=== PATIENT | male | born 1935 | race Hispanic/Latino ===

== ENCOUNTER 2017-03-10 13:46 | Inpatient (IN) | payer MEDICARE ==
[2017-03-10] MEDS ORDERED: Sodium Chloride 0.9% 1,000 ML IV ONE ×2 (14:23→17:30)
--- NOTE | 2017-03-10 14:24 | C.PDOC ---
History Of Present Illness 82 year old male is brought to the ED by ambulance for evaluation of left hip pain and deformity that developed MANAGER BEAUTY. Patient reports he slipped at home, landed on his left hip. Otherwise, Patient denies LOC, head injury, headache, dizziness, visual changes, focal deficits, neck pain, CP, SOB, palpitation, abdominal pain, vomiting, incontinence, denies sensory or vascular deficits to Left leg. At the time of evaluation, pt is AAO#3, comfortably. Time Seen by Provider: 03/10/17 13:59 Chief Complaint (Nursing): Lower Extremity Problem/Injury History Per: Patient, EMS History/Exam Limitations: no limitations Onset/Duration Of Symptoms: Hrs Current Symptoms Are (Timing): Still Present Recent travel outside of the [place]: No Additional History Per: Patient, EMS - Hip Description Of Injury: Tripped Currently Unable To: Bend Or Move Past Medical History Reviewed: Historical Data, Nursing Documentation, Vital Signs Vital Signs: Last Vital Signs Temp 98.0 F 03/12/17 16:57 Pulse 80 03/12/17 16:57 Resp 18 03/12/17 16:57 BP 106/69 03/12/17 16:57 Pulse Ox 100 03/12/17 16:57 - Medical History PMH: Hypercholesterolemia Surgical History: Cholecystectomy Family History: States: Unknown Family Hx - Social History Hx Alcohol Use: No Hx Substance Use: No - Immunization History Hx Tetanus Toxoid Vaccination: No Hx Influenza Vaccination: Yes Hx Pneumococcal Vaccination: No Review Of Systems Constitutional: Negative for: Fever Eyes: Negative for: Vision Change Cardiovascular: Negative for: Chest Pain, Palpitations Respiratory: Negative for: Cough, Shortness of Breath Gastrointestinal: Negative for: Nausea, Vomiting, Abdominal Pain Genitourinary: Negative for: Incontinence Musculoskeletal: Positive for: Leg Pain (Left hip) Skin: Negative for: Rash Neurological: Negative for: Weakness, Numbness, Headache, Dizziness Physical Exam - Physical Exam Appears: Non-toxic, No Acute Distress Skin: Normal Color, Warm, Dry, No Rash, No Ecchymosis Head: Atraumatic, Normacephalic Eye(s): bilateral: PERRL Nose: No Discharge, No Deformity Oral Mucosa: Moist, No Drooling Throat: No Drooling Neck: Normal ROM, Trachea Midline, No Midline Cervical Tenderness, No Paracervical Tenderness, No Step Off Deformity, Supple Cardiovascular: Rhythm Regular, No Murmur Respiratory: No Decreased Breath Sounds, No Accessory Muscle Use, No Stridor, No Wheezing Gastrointestinal/Abdominal: Soft, No Tenderness, No Organomegaly, No Guarding, No Rebound Extremity: Tenderness (Left hip area), Capillary Refill (less than 2sec to left leg), Deformity (left hip ), Other (shortened left leg) Neurological/Psych: Oriented x3, Normal Speech, Normal Cognition, Normal Motor, Normal Sensation, Normal Reflexes ED Course And Treatment - Laboratory Results Result Diagrams: 03/12/17 10:26 03/10/17 21:01 ECG: Interpreted By Me, Viewed By Me (and ED attending) ECG Interpretation: Abnormal Interpretation Of ECG: SR@69/min, LAD, LBBBB. no old EKG available to compare. O2 Sat by Pulse Oximetry: 95 (On RA) Pulse Ox Interpretation: Normal - Radiology CXR Interpretation: Yes: Cardiomegaly, Other (s/p CABG) - Other Rad Left hip X-Ray: Interpreted by Me, Viewed By Me Interpretation: (+) comminuted left interthrochanteric fx, angulated Progress Note: Plan: -EKG, CXR ordered. -Blood work, UA ordered. -IV fluids given. -Left Hip X-Ray ordered. Spoke with Dr. Villar, admission arranged with ortho consult Dr. Nesbitt . 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 - Scribe Statement The provider has reviewed the documentation as recorded by the Scribjared Stone All medical record entries made by the José Miguelibjared were at my direction and personally dictated by me. I have reviewed the chart and agree that the record accurately reflects my personal performance of the history, physical exam, medical decision making, and the department course for this patient. I have also personally directed, reviewed, and agree with the discharge instructions and disposition.
[2017-03-10 14:58] LABS: BASO # 0.1 K/uL (0.0-0.2); BASO % 0.5 % (0.0-2.0); EOS # 0.1 K/uL (0.0-0.7); EOS % 0.7 % (0.0-4.0); HEMATOCRIT 35.5 % (35.0-51.0); LYMPH # 1.1 K/uL (1.0-4.3); LYMPH % 10.2 % (20.0-40.0); MEAN CELL VOLUME 96.2 fL (80.0-94.0); MEAN CORPUSCULAR HEMOGLOBIN 32.3 pg (27.0-31.0); MEAN CORPUSCULAR HGB CONC 33.6 g/dL (33.0-37.0); MEAN PLATELET VOLUME 7.9 fL (7.2-11.7); MONO # 0.5 K/uL (0.0-0.8); MONO % 4.7 % (0.0-10.0); NRBC % 0.1 % (0.0-2.0); RED CELL DISTRIBUTION WIDTH 12.6 % (11.5-14.5); WHITE BLOOD COUNT 11.2 K/uL (4.8-10.8)
[2017-03-10 15:26] LABS: ALKALINE PHOSPHATASE 96 U/L (38-126); ALT/SGPT 26 U/L (21-72); AST/SGOT 24 U/L (17-59); BILIRUBIN,TOTAL 0.8 mg/dL (0.2-1.3); BLOOD UREA NITROGEN 22 mg/dL (9-20); CALCIUM 8.3 mg/dl (8.6-10.4); CARBON DIOXIDE 24 mmol/L (22-30); CHLORIDE 105 mmol/L (98-107); GFR AFRICAN-AMERICAN > 60; GLUCOSE,RANDOM 120 mg/dL (75-110); POTASSIUM 4.6 mmol/L (3.6-5.2); SODIUM 138 mmol/L (132-148); TOTAL PROTEIN 6.2 g/dL (6.3-8.3)
[2017-03-10 15:32] LABS: ALB/GLOB RATIO 1.6 (1.0-2.1)
[2017-03-10] MEDS ORDERED: Sodium Chloride 0.9% 1,000 ML ONE ×3 (16:29→18:36)
--- NOTE | 2017-03-10 16:34 | RAD ---
PROCEDURE: CHEST RADIOGRAPH, 1 VIEW HISTORY: PRE-OP COMPARISON: None available. FINDINGS: LUNGS: Linear opacities at the lung bases may represent atelectasis. The left retrocardiac portion of the lower lobe is not well visualized. The possibility of left lung base opacity or infiltrate is not totally excluded. PLEURA: There is a blunting of the left costophrenic angle. CARDIOVASCULAR: Normal. OSSEOUS STRUCTURES: No significant abnormalities. VISUALIZED UPPER ABDOMEN: Normal. OTHER FINDINGS: None. IMPRESSION: Suboptimal portable study. The left lower lobe is not well visualized. There is blunting of the left costophrenic angle.
[2017-03-10] MEDS ORDERED: Morphine 4 MG/ML VIAL ONE (17:09)
--- NOTE | 2017-03-10 17:28 | CP.PCM.HP ---
History of Present Illness - History of Present Illness History of Present Illness: Chief complaint: Patient had a trip and fall, injury to the left hip History of present illness: 82-year-old male with history of hypertension, high cholesterol, CAD, status post coronary artery bypass grafting came to the emergency room, via ambulance with left hip pain. Patient was in his usual state of health, a rounded 12:00 he started walking in the house and he tripped and fell on the floor, and he injured his left hip. Patient was not able to get up, he had a severe pain, and he called the ambulance with extreme difficulty. Patient was having increasingly pain with moving the left hip. He does not have any other major systemic symptoms, no chest pain, no shortness of breath. He denies any nausea or vomiting. No external injuries noted. Past medical history: Hypertension, high cholesterol, CAD, diverticulosis Surgical history: CABG in 1993 cholecystectomy, cataract bilateral, colonoscopy Allergies no known drug allergies Family history: Father with asthma, alcohol or pneumonia in the age of 74, mother at age of 94. Brother of heart disease at the age of 63. Patient is a nonsmoker, nonalcoholic. Medications: ramipril 2.5 mg daily, Coreg 12.5 mg daily, Lipitor 20 mg, aspirin 81 mg daily. Review of systems: Patient has no headache. Had cataract surgery, no abdominal pain, no chest pain, no shortness of breath. Eating well. Patient has a good function capacity. Patient had a fall and a left hip injury Vital signs reviewed No neck vein distention noted Chest good air entry bilaterally, no wheezing or rales noted CVS regular heart sound, no murmur noted Abdomen soft, nontender. Extremities no pedal edema DOCTOR OF NURSING PRACTICE alert awake oriented -3, no functional neurological deficit Tenderness in the left hip. Externally rotated left hip painful X-ray of bilateral hips are showing evidence of left hip intertrochanteric fracture. Chest x-ray left lower lung atelectasis, pleural opacity cannot be ruled out EKG pending Labs noted. Nonspecific. Assessment and recommended impression: 81-year-old male with history of hypertension, hypercholesteremia, CAD, status post CABG now admitted with the acute left hip fracture. Intertrochanteric fracture. Patient will need a surgical intervention. I spoke to orthopedic surgery , possible surgical intervention in the morning. I also spoke to the cage loader to Dr. Gage, patient will be cleared by him for cardiology point of view. Patient is medically stable otherwise. Medical point of view patient is cleared up. DVT, GI prophylaxis Present on Admission - Present on Admission Any Indicators Present on Admission: No History of DVT/PE: No History of Uncontrolled Diabetes: No Urinary Catheter: No Decubitus Ulcer Present: No Review of Systems - Review of Systems All systems: reviewed and no additional remarkable complaints except Past Patient History - Past Social History Smoking Status: Smoker Currrent Status Unknown - CARDIAC Hx Hypercholesterolemia: Yes - PSYCHIATRIC Hx Substance Use: No - SURGICAL HISTORY Hx Cholecystectomy: Yes Meds Allergies/Adverse Reactions: Allergies Allergy/AdvReac Type Severity Reaction Status Date / Time No Known Allergies Allergy Verified 03/10/17 14:20 Results - Vital Signs Recent Vital Signs: Last Vital Signs Temp 97.6 F 03/10/17 14:16 Pulse 73 03/10/17 16:48 Resp 20 03/10/17 16:48 BP 115/58 L 03/10/17 16:48 Pulse Ox 95 03/10/17 16:55 - Labs Result Diagrams: 03/10/17 14:53 03/10/17 14:53 Labs: Laboratory Results - last 24 hr 03/10/17 03/10/17 03/10/17 14:53 14:53 14:53 WBC 11.2 H RBC 3.69 L Hgb 11.9 L Hct 35.5 MCV 96.2 H MCH 32.3 H MCHC 33.6 RDW 12.6 Plt Count 238 MPV 7.9 Neut % (Auto) 83.9 H Lymph % (Auto) 10.2 L [place] % (Auto) 4.7 Eos % (Auto) 0.7 Baso % (Auto) 0.5 Neut # 9.4 H Lymph # 1.1 [place] # 0.5 Eos # 0.1 Baso # 0.1 PT 11.1 INR 1.0 APTT 25 Sodium 138 Potassium 4.6 Chloride 105 Carbon Dioxide 24 Anion Gap 14 BUN 22 H Creatinine 0.8 Est GFR ( Amer) > 60 Est GFR (Non-Af Amer) > 60 Random Glucose 120 H Calcium 8.3 L Total Bilirubin 0.8 AST 24 ALT 26 Alkaline Phosphatase 96 Total Creatine Kinase 62 Troponin I < 0.0120 NT-Pro-B Natriuret Pep 812 Total Protein 6.2 L Albumin 3.8 Globulin 2.4 Albumin/Globulin Ratio 1.6 Assessment & Plan (1) Hx of CABG Status: Acute (2) HTN (hypertension) Status: Acute (3) Hypercholesteremia Status: Acute (4) Hip fracture Assessment and Plan: comparison the chart. Surgical intervention. DVT and GI prophylaxis Status: Acute
[2017-03-10] MEDS ORDERED: Sodium Chloride 0.9% 1,000 ML IV SCH ×3 (17:30→23:31)
--- NOTE | 2017-03-10 19:05 | CP.PCM.CON ---
History of Present Illness - History of Present Illness History of Present Illness: the pt is an 82 year old man with CAD, not seen in my office since 2013, who got up from a chair and fell, his left hip is broken. No recent chest pressure or dyspnea. pt has not had any non invasive CV tests for many years. ECG shows. nsr, mild first degree av block, poor R wave progression, LAD, cannot exdlude old AMI, and v bigeminy. Review of Systems - Review of Systems All systems: reviewed and no additional remarkable complaints except (as above. left hip pain. no syncope.) Past Patient History - Past Social History Smoking Status: Smoker Currrent Status Unknown - CARDIAC Hx Hypercholesterolemia: Yes - PSYCHIATRIC Hx Substance Use: No - SURGICAL HISTORY Hx Cholecystectomy: Yes Meds Allergies/Adverse Reactions: Allergies Allergy/AdvReac Type Severity Reaction Status Date / Time No Known Allergies Allergy Verified 03/10/17 14:20 - Medications Medications: Current Medications Carvedilol (Coreg) 3.125 mg PO DAILY [facility] Enoxaparin Sodium (Lovenox) 40 mg SC ONCE ONE Stop: 03/10/17 20:01 Famotidine (Pepcid) 20 mg IVP DAILY [facility] Sodium Chloride (Sodium Chloride 0.9%) 1,000 mls @ 100 mls/hr IV .Q10H [facility] Last Admin: 03/10/17 18:51 Dose: 100 mls/hr Rosuvastatin Calcium (Crestor) 5 mg PO HS [facility] Physical Exam - Constitutional Appears: Well, In Acute Distress (left hip pain, no dyspnea or chest pain) - Head Exam Head Exam: ATRAUMATIC - Eye Exam Eye Exam: EOMI - ENT Exam ENT Exam: Mucous Membranes Dry - Neck Exam Neck exam: Positive for: Full Rom - Respiratory Exam Respiratory Exam: Clear to Auscultation Bilateral - GI/Abdominal Exam GI & Abdominal Exam: Normal Bowel Sounds - Rectal Exam Rectal Exam: NORMAL INSPECTION - Exam External exam: NORMAL EXTERNAL EXAM - Extremities Exam Extremities exam: Positive for: normal inspection - Back Exam Back exam: NORMAL INSPECTION - Neurological Exam Neurological exam: Alert, Oriented x3, Reflexes Normal - Psychiatric Exam Psychiatric exam: Anxious, Normal Affect - Skin Skin Exam: Pallor Results - Vital Signs Recent Vital Signs: Last Vital Signs Temp 97.6 F 03/10/17 14:16 Pulse 74 03/10/17 18:53 Resp 20 03/10/17 18:53 BP 99/63 L 03/10/17 18:53 Pulse Ox 95 03/10/17 18:53 - Labs Result Diagrams: 03/10/17 14:53 03/10/17 14:53 Labs: Laboratory Results - last 24 hr 03/10/17 03/10/17 03/10/17 14:53 14:53 14:53 WBC 11.2 H RBC 3.69 L Hgb 11.9 L Hct 35.5 MCV 96.2 H MCH 32.3 H MCHC 33.6 RDW 12.6 Plt Count 238 MPV 7.9 Neut % (Auto) 83.9 H Lymph % (Auto) 10.2 L [place] % (Auto) 4.7 Eos % (Auto) 0.7 Baso % (Auto) 0.5 Neut # 9.4 H Lymph # 1.1 [place] # 0.5 Eos # 0.1 Baso # 0.1 PT 11.1 INR 1.0 APTT 25 Sodium 138 Potassium 4.6 Chloride 105 Carbon Dioxide 24 Anion Gap 14 BUN 22 H Creatinine 0.8 Est GFR ( Amer) > 60 Est GFR (Non-Af Amer) > 60 Random Glucose 120 H Calcium 8.3 L Total Bilirubin 0.8 AST 24 ALT 26 Alkaline Phosphatase 96 Total Creatine Kinase 62 Troponin I < 0.0120 NT-Pro-B Natriuret Pep 812 Total Protein 6.2 L Albumin 3.8 Globulin 2.4 Albumin/Globulin Ratio 1.6 Blood Type 03/10/17 18:08 WBC RBC Hgb Hct MCV MCH MCHC RDW Plt Count MPV Neut % (Auto) Lymph % (Auto) [place] % (Auto) Eos % (Auto) Baso % (Auto) Neut # Lymph # [place] # Eos # Baso # PT INR APTT Sodium Potassium Chloride Carbon Dioxide Anion Gap BUN Creatinine Est GFR ( Amer) Est GFR (Non-Af Amer) Random Glucose Calcium Total Bilirubin AST ALT Alkaline Phosphatase Total Creatine Kinase Troponin I NT-Pro-B Natriuret Pep Total Protein Albumin Globulin Albumin/Globulin Ratio Blood Type O POSITIVE - EKG Data EKG Interpreted by: Myself (as above.) Assessment & Plan - Assessment and Plan (Free Text) Assessment: 1. CAD; although no recent eval, previous assessments of LV EF were normal. pt denies any CV related symptoms. 2. BP is low: d/ coreg. pt may be volume depleted. IV fluids advised, gently. 3. TNI negative:\ 4. Pt is cleared for surgery, provided that BP improves.
[2017-03-10] MEDS ORDERED: Enoxaparin 40 mg Syringe SC ONE (20:00)
[2017-03-10 21:08] LABS: BASO % 0.2 % (0.0-2.0); HEMATOCRIT 27.1 % (35.0-51.0); LYMPH # 0.7 K/uL (1.0-4.3); LYMPH % 9.1 % (20.0-40.0); MEAN CORPUSCULAR HEMOGLOBIN 32.6 pg (27.0-31.0); MEAN CORPUSCULAR HGB CONC 33.9 g/dL (33.0-37.0); MEAN PLATELET VOLUME 7.5 fL (7.2-11.7); MONO # 0.4 K/uL (0.0-0.8); MONO % 5.2 % (0.0-10.0); PLATELET COUNT 184 K/uL (130-400); RED CELL DISTRIBUTION WIDTH 12.3 % (11.5-14.5); WHITE BLOOD COUNT 7.9 K/uL (4.8-10.8)
[2017-03-10 21:30] LABS: ALB/GLOB RATIO 1.4 (1.0-2.1); ALKALINE PHOSPHATASE 68 U/L (38-126); ALT/SGPT 31 U/L (21-72); AST/SGOT 28 U/L (17-59); BILIRUBIN,TOTAL 0.8 mg/dL (0.2-1.3); BLOOD UREA NITROGEN 20 mg/dL (9-20); CALCIUM 7.1 mg/dl (8.6-10.4); CARBON DIOXIDE 20 mmol/L (22-30); CHLORIDE 107 mmol/L (98-107); GFR AFRICAN-AMERICAN > 60; GLUCOSE,RANDOM 138 mg/dL (75-110); MAGNESIUM 1.6 mg/dL (1.6-2.3); PHOSPHOROUS 3.9 mg/dL (2.5-4.5); SODIUM 137 mmol/L (132-148); TOTAL PROTEIN 4.8 g/dL (6.3-8.3)
[2017-03-10 21:51] LABS: NEUTROPHIL 92 % (50-75); TOTAL CELLS COUNTED 100
[2017-03-11 01:51] LABS: RBC URINE 1 /hpf (0-3); URINE BILIRUBIN NEGATIVE (NEGATIVE); URINE BLOOD NEGATIVE (NEGATIVE); URINE COLOR Yellow (YELLOW); URINE GLUCOSE (UA) NORMAL (Normal); URINE KETONE NEGATIVE (NEGATIVE); URINE LEUKOCYTE ESTERASE NEG Leu/uL (Negative); URINE PROTEIN NEGATIVE (NEGATIVE); URINE UROBILINOGEN NORMAL mg/dL (0.2-1.0); WBC URINE 1 /hpf (0-5)
--- NOTE | 2017-03-11 09:17 | CP.PCM.PN ---
Subjective - Date & Time of Evaluation Date of Evaluation: 03/11/17 Time of Evaluation: 09:15 - Subjective Subjective: The patient this morning feeling better. But left hip pain noted. The blood pressure is on the low side. But patient is asymptomatic. Blood. Hemoglobin is on the low side, suggested one unit of blood transfusion. No chest pain. Objective - Vital Signs/Intake and Output Vital Signs (last 24 hours): Temp Pulse Resp BP Pulse Ox 98.7 F 73 18 96/58 L 98 03/11/17 05:36 03/11/17 08:00 03/11/17 05:36 03/11/17 05:36 03/11/17 05:36 Intake and Output: 03/11/17 03/11/17 06:59 18:59 Intake Total 718 Output Total 400 Balance 318 On examination: HEENT PERRLA, neck supple No thyromegaly was noted and no cervical adenopathy noted Chest bilateral good air entry, no wheezing or rales noted CVS regular heart sound, no murmur Abdomen soft and no organomegaly left hip pain, deformity INPATIENT NURSING AIDE alert awake oriented x3 no functional neurological deficit - Medications Medications: Current Medications Famotidine (Pepcid) 20 mg IVP DAILY [facility] Sodium Chloride (Sodium Chloride 0.9%) 1,000 mls @ 75 mls/hr IV .[id number] [facility] Ketorolac Tromethamine (Toradol) 15 mg IVP Q4H PRN PRN Reason: Pain, severe (8-10) Pneumococcal Polyvalent Vaccine (Pneumovax 23 Vaccine) 0.5 ml IM .ONCE ONE Stop: 03/13/17 10:01 Rosuvastatin Calcium (Crestor) 5 mg PO HS [facility] Last Admin: 03/10/17 22:28 Dose: 5 mg - Labs Labs: 03/10/17 21:01 03/10/17 21:01 PT 11.1 SECONDS (9.7-12.2) 03/10/17 14:53 INR 1.0 03/10/17 14:53 APTT 25 SECONDS (21-34) 03/10/17 14:53 Assessment and Plan (1) Hx of CABG Status: Acute (2) HTN (hypertension) Status: Acute (3) Hypercholesteremia Status: Acute (4) Hip fracture Assessment & Plan: patient with hip fracture, for surgical intervention. Will start one unit of blood transfusio For possible fracture fixation. Patient is medically cleared. Good functional capacity prior to these problem. DVT. GI prophylaxis. Cardiac monitoring. Status: Acute
--- NOTE | 2017-03-11 10:06 | RAD ---
PROCEDURE: Left Hip X-ray Radiographs. HISTORY: INJURY COMPARISON: None. FINDINGS: BONES: Diffuse osteopenia. Comminuted left intratrochanteric fracture with superior rotation of the left femoral head and superior migration of the femoral shaft. JOINTS: Femoroacetabular narrowing bilateral. SOFT TISSUES: Left hip soft-tissue swelling. OTHER FINDINGS: None. IMPRESSION: Comminuted, displaced left intertrochanteric fracture as described above
[2017-03-11] MEDS ORDERED: Enoxaparin 40 mg Syringe SC ONE (16:38)
--- NOTE | 2017-03-11 18:16 | CP.PCM.PN ---
Subjective - Date & Time of Evaluation Date of Evaluation: 03/11/17 Time of Evaluation: 18:13 - Subjective Subjective: Pt is in less pain. No dyspnea: echo was ordered and LV EF is diffusely mild to moderately reduced, with normal estimated LA pressure. Objective - Vital Signs/Intake and Output Vital Signs (last 24 hours): Temp Pulse Resp BP Pulse Ox 98.0 F 75 20 132/69 99 03/11/17 15:15 03/11/17 15:15 03/11/17 15:15 03/11/17 15:15 03/11/17 15:15 Intake and Output: 03/11/17 03/11/17 06:59 18:59 Intake Total 718 325 Output Total 400 Balance 318 325 - Medications Medications: Current Medications Famotidine (Pepcid) 20 mg IVP DAILY [facility] Last Admin: 03/11/17 11:23 Dose: 20 mg Sodium Chloride (Sodium Chloride 0.9%) 1,000 mls @ 75 mls/hr IV .[id number] [facility] Last Admin: 03/11/17 12:51 Dose: Not Given Ketorolac Tromethamine (Toradol) 15 mg IVP Q4H PRN PRN Reason: Pain, severe (8-10) Last Admin: 03/11/17 11:19 Dose: 15 mg Pneumococcal Polyvalent Vaccine (Pneumovax 23 Vaccine) 0.5 ml IM .ONCE ONE Stop: 03/13/17 10:01 Rosuvastatin Calcium (Crestor) 5 mg PO HS [facility] Last Admin: 03/10/17 22:28 Dose: 5 mg - Labs Labs: 03/10/17 21:01 03/10/17 21:01 PT 11.1 SECONDS (9.7-12.2) 03/10/17 14:53 INR 1.0 03/10/17 14:53 APTT 25 SECONDS (21-34) 03/10/17 14:53 - Constitutional Appears: Well - Head Exam Head Exam: ATRAUMATIC - Eye Exam Eye Exam: EOMI - ENT Exam ENT Exam: Mucous Membranes Moist - Neck Exam Neck Exam: Full ROM - Respiratory Exam Respiratory Exam: Clear to Ausculation Bilateral - Cardiovascular Exam Cardiovascular Exam: REGULAR RHYTHM - GI/Abdominal Exam GI & Abdominal Exam: Normal Bowel Sounds - Extremities Exam Extremities Exam: Full ROM, Normal Inspection - Back Exam Back Exam: NORMAL INSPECTION - Neurological Exam Neurological Exam: Alert, Awake, Oriented x3 - Psychiatric Exam Psychiatric exam: Normal Affect, Normal Mood - Skin Skin Exam: Normal Color Assessment and Plan - Assessment and Plan (Free Text) Assessment: 1. left hip fracture: pt is cleared for surgery. 2. Mild to moderately reduced LV EF: pt has Chronic stable cad. TNI is negative. there is no acute ischemia. Due to pts advanced age, no aggressive work up is advised. After surgery, if bp allows, will try to dose low dose cecilia inhibitor and beta nicole.
[2017-03-11 19:56] LABS: MEAN CELL VOLUME 95.3 fL (80.0-94.0); MEAN CORPUSCULAR HEMOGLOBIN 32.6 pg (27.0-31.0); MEAN CORPUSCULAR HGB CONC 34.2 g/dL (33.0-37.0); MEAN PLATELET VOLUME 8.1 fL (7.2-11.7); RED CELL DISTRIBUTION WIDTH 12.6 % (11.5-14.5); WHITE BLOOD COUNT 6.4 K/uL (4.8-10.8)
[2017-03-11] MEDS: Sodium Chloride 0.9% 1,000 ML IV SCH (20:59)
--- NOTE | 2017-03-11 21:19 | CARD ---
APPROVED REPORT EXAM: Two-dimensional and M-mode echocardiogram with Doppler and color Doppler. Other Information Quality : GoodRhythm : NSR INDICATION Cardiac Disease: CAD RISK FACTORS Hypertension Hyperlipidemia 2D DIMENSIONS IVSd1.2 (0.7-1.1cm)LVDd5.9 (3.9-5.9cm) PWd1.1 (0.7-1.1cm)LVDs5.2 (2.5-4.0cm) FS (%) 11.5 %LVEF (%)24.6 (>50%) M-Mode DIMENSIONS Left Atrium (MM)4.64 (2.5-4.0cm)Aortic Root4.07 (2.2-3.7cm) Aortic Cusp Exc.2.19 (1.5-2.0cm) Mitral Valve MV E Pjfuyivd16.5cm/sMV A Dpqbrqpt15.6cm/sE/A ratio0.9 TDI E/Lateral E'0.0E/Medial E'0.0 Tricuspid Valve TR Peak Dnalmtns519cm/sTR Peak Gr.[id number] LEFT VENTRICLE The left ventricle is normal size. There is normal left ventricular wall thickness. Left ventricle systolic function is severely impaired. The Ejection Fraction is 25-30%. There is severe global hypokinesis of the left ventricle. Tissue Doppler imaging reveals abnormal left ventricular diastolic dysfunction. AORTIC VALVE The aortic valve is normal in structure. No aortic regurgitation is present. There is no aortic valvular stenosis. MITRAL VALVE The mitral valve is normal in structure. There is no evidence of mitral valve prolapse. There is no mitral valve stenosis. Mitral regurgitation is mild. TRICUSPID VALVE The tricuspid valve is normal in structure. There is trace tricuspid regurgitation. Right ventricular systolic pressure is estimated at less than 30 mmHg. There is no pulmonary hypertension. PULMONIC VALVE The pulmonic valve is not well visualized. There is no pulmonic valvular regurgitation. GREAT VESSELS The aortic root is normal in size. PERICARDIAL EFFUSION There is no significant pericardial effusion. <Conclusion> Left ventricle systolic function is severely impaired. The Ejection Fraction is 25-30%. Diastolic dysfunction. No aortic regurgitation is present. Mitral regurgitation is mild. There is trace tricuspid regurgitation. There is no pulmonary hypertension. There is no pulmonic valvular regurgitation.
[2017-03-12 04:41] LABS: INR 1.1
[2017-03-12] MEDS ORDERED: Etomidate 20 mg/10ml Inj IV ONE (07:15)
[2017-03-12] MEDS ORDERED: ePHEDrine 50 mg/ml Inj ONE (07:24)
[2017-03-12] MEDS ORDERED: Phenylephrine 10 mg/ml Inj ONE (07:24)
[2017-03-12] MEDS ORDERED: ceFAZolin IV 1 gm in Dextrose 0 GM/0 ML BAG IVPB ONE (07:27)
[2017-03-12] MEDS ORDERED: Lactated Ringer's 1,000 ML IV ONE (08:05)
[2017-03-12] MEDS ORDERED: ceFAZolin IV 1 gm in Dextrose 1 GM/50 ML BAG IVPB ONE (08:29)
[2017-03-12] MEDS ORDERED: Sodium Chloride 0.9% 1,000 ML IV ONE (08:40)
[2017-03-12] MEDS ORDERED: Bupivacaine HCl 0.5% PF (10 ml) Inj ONE (09:30)
[2017-03-12] MEDS ORDERED: HYDROmorphone 0.5 mg/0.5 ml ISec IVP PRN (10:05)
[2017-03-12 10:29] LABS: HEMATOCRIT 27.9 % (35.0-51.0); MEAN CELL VOLUME 97.1 fL (80.0-94.0); MEAN CORPUSCULAR HEMOGLOBIN 32.8 pg (27.0-31.0); MEAN CORPUSCULAR HGB CONC 33.8 g/dL (33.0-37.0); MEAN PLATELET VOLUME 7.7 fL (7.2-11.7); RED CELL DISTRIBUTION WIDTH 12.5 % (11.5-14.5); WHITE BLOOD COUNT 7.2 K/uL (4.8-10.8)
--- NOTE | 2017-03-12 10:41 | PCM.SURG1 ---
Surgeon's Initial Post Op Note - Surgeon's Notes Surgeon: Liam Ortiz MD Collections Assistant: Brooke Garcia PA-C Type of Anesthesia: General Endo Anesthesia Administered By: Dr. Moreno Pre-Operative Diagnosis: Left hip intertrochanteric fracture Operative Findings: same Post-Operative Diagnosis: same Operation Performed: Left hip ORIF trochanteric nailing Specimen/Specimens Removed: none Estimated Blood Loss: EBL {In ML}: 200 Blood Products Given: N/A Drains Used: No Drains Post-Op Condition: Fair Date of Surgery/Procedure: 03/12/17 Time of Surgery/Procedure: 10:45
--- NOTE | 2017-03-12 10:48 | RAD ---
PROCEDURE: Left Hip X-ray Radiographs. HISTORY: pt in pacu, s/p troch nail COMPARISON: 03/10/2017 FINDINGS: BONES: Status post ORIF left intertrochanteric hip fracture with comminution. Fracture fragments are in near anatomic alignment. Orthopedic hardware appears intact. No other fracture is appreciated. JOINTS: Normal. SOFT TISSUES: Normal. OTHER FINDINGS: None. IMPRESSION: Status post ORIF left intertrochanteric hip fracture.
--- NOTE | 2017-03-12 12:20 | RAD ---
PROCEDURE: Intraoperative fluoroscopy HISTORY: LT. HIP FX. COMPARISON: Not available TECHNIQUE: Intraoperative fluoroscopy was provided for ORIF of left intertrochanteric hip fracture. Total time of fluoroscopy was 125.1 seconds. FINDINGS: Multiple fluoroscopic spot films are submitted. Films are on file for review. IMPRESSION: Fluoroscopy provided.
[2017-03-12] MEDS: Sodium Chloride 0.9% 1,000 ML IV SCH ×2 (14:05→22:03)
[2017-03-12] MEDS: ceFAZolin IV 2 gm in Dextrose 2 GM/50 ML BAG IVPB SCH (17:00)
--- NOTE | 2017-03-12 18:08 | CP.PCM.PN ---
Subjective - Date & Time of Evaluation Date of Evaluation: 03/12/17 Time of Evaluation: 18:05 - Subjective Subjective: pt is in less pain, in good spirits, in bed Objective - Vital Signs/Intake and Output Vital Signs (last 24 hours): Temp Pulse Resp BP Pulse Ox 98.0 F 80 18 106/69 100 03/12/17 16:57 03/12/17 16:57 03/12/17 16:57 03/12/17 16:57 03/12/17 16:57 Intake and Output: 03/12/17 03/12/17 06:59 18:59 Intake Total 320 625 Output Total 600 275 Balance -280 350 - Medications Medications: Current Medications Apixaban (Eliquis) 2.5 mg PO Q12H [facility] Docusate Sodium (Colace) 100 mg PO BID [facility] Famotidine (Pepcid) 20 mg IVP DAILY [facility] Last Admin: 03/12/17 10:00 Dose: Not Given Sodium Chloride (Sodium Chloride 0.9%) 1,000 mls @ 40 mls/hr IV .Q24H [facility] Last Admin: 03/12/17 14:05 Dose: 40 mls/hr Cefazolin Sodium/Dextrose (Ancef Iv 2 Gm Duplex) 2 gm in 50 mls @ 100 mls/hr IVPB Q8H [facility] Stop: 03/13/17 00:29 Ketorolac Tromethamine (Toradol) 15 mg IVP Q4H PRN PRN Reason: Pain, severe (8-10) Last Admin: 03/11/17 11:19 Dose: 15 mg Pneumococcal Polyvalent Vaccine (Pneumovax 23 Vaccine) 0.5 ml IM .ONCE ONE Stop: 03/13/17 10:01 Rosuvastatin Calcium (Crestor) 5 mg PO HS [facility] Last Admin: 03/11/17 21:31 Dose: 5 mg - Labs Labs: 03/12/17 10:26 03/10/17 21:01 PT 12.1 SECONDS (9.7-12.2) 03/12/17 04:00 INR 1.1 03/12/17 04:00 APTT 29 SECONDS (21-34) 03/12/17 04:00 - Constitutional Appears: No Acute Distress - Head Exam Head Exam: ATRAUMATIC - Eye Exam Eye Exam: EOMI - ENT Exam ENT Exam: Mucous Membranes Moist - Respiratory Exam Respiratory Exam: Clear to Ausculation Bilateral - Cardiovascular Exam Cardiovascular Exam: REGULAR RHYTHM - GI/Abdominal Exam GI & Abdominal Exam: Normal Bowel Sounds - Extremities Exam Extremities Exam: Full ROM - Neurological Exam Neurological Exam: Alert, Awake, CN II-XII Intact - Psychiatric Exam Psychiatric exam: Normal Affect - Skin Skin Exam: Normal Color Assessment and Plan - Assessment and Plan (Free Text) Assessment: 1. moderately reduced LV EF: no clinical chf. After a day or so, will assess BP and start cecilia inhib and beta nicole as BP allows. 2. CAD is stable. 3. Stable after hip surgery
--- NOTE | 2017-03-12 18:54 | OP ---
PROCEDURE DATE: 03/11/2017 PREOPERATIVE DIAGNOSIS: Intertrochanteric fracture of the hip. POSTOPERATIVE DIAGNOSES: Severely comminuted intertrochanteric fracture of the hip with posterior comminution and severe osteoporosis. PROCEDURE: Open reduction and internal fixation with a TFN nail and insertion of a lag screw and distal interlocking screw. INDICATIONS: Prior to the procedure, risk and benefits of the surgery, prognosis and complications were explained including infection, cardiac, pulmonary, malunion, nonunion, need for future surgery, permanent weakness, permanent numbness, possible loss of life and limb etc,. The patient fully understood and agreeable. The patient was also told about leg length difference, failure of fixation, blood clots, need for future surgical procedures, etc. All the questions were answered. DESCRIPTION OF PROCEDURE: The patient was brought to the operating room. The patient was placed on the fracture table after induction of anesthesia. The left hip was prepped and draped in the usual manner. Multiplane fluoroscopy was used throughout the procedure. After prepping the hip, proximal to the greater trochanter, incision was made. Prior to that, closed reduction fracture was done and the fluoroscopy x-rays revealed that the fracture was comminuted and severely osteoporotic but the fracture could be reduced to a satisfactory alignment. The incision was made proximal to the trochanter. Dissection was carried down in layers. A guidewire was inserted to the tip of the trochanter into the shaft of the femur. The position of the guidewire was found to be satisfactory. At this point, the reaming of the proximal femur up to the lesser trochanter was done with a TFN proximal reamer. Once this was done, a flexible guidewire was passed, and we elected to use a 170 mm x 11 mm diameter TFN nail. This was introduced into the trochanter into the shaft of the femur. The nail was found to be in a satisfactory position. At this point, using the proximal targeting device, the guidewire was introduced into the neck and head of the femur. The guidewire was found to be subchondral. We decided to use a 105-mm nail after measuring the length of the guidewire. A triple reamer was used and the 105-mm lag screw was inserted proximally, and the position of the lag screw was confirmed on multiplane fluoroscopy. At this time, the proximal interlocking screw was locked. Then, we proceeded with distal interlocking as follows. Through the targeting sleeve, we drilled the distal hole, and we introduced a 5-mm interlocking screw. The screw was found to be in a satisfactory position. The traction was reduced. Multiplane fluoroscopy confirmed that the screw was in a satisfactory position and engaged to the shaft of the femur. Then, the traction was reduced. Wounds were thoroughly irrigated. Marcaine was used for local anesthesia. Wound was closed in layers. Compression dressing and Aquacel dressing were applied. The patient tolerated the procedure well and left the operating room to the recovery room in a satisfactory condition. Kristopher Ortiz MD
--- NOTE | 2017-03-12 23:52 | CP.PCM.PN ---
Subjective - Date & Time of Evaluation Date of Evaluation: 03/12/17 Time of Evaluation: 18:27 - Subjective Subjective: status post surgery. Patient is postoperatively doing okay. Pain noted. iV fluid No chest pain or shortness of breath. Objective - Vital Signs/Intake and Output Vital Signs (last 24 hours): Temp Pulse Resp BP Pulse Ox 98.0 F 80 18 106/69 100 03/12/17 16:57 03/12/17 16:57 03/12/17 16:57 03/12/17 16:57 03/12/17 16:57 linically stable. Intake and Output: 03/12/17 03/13/17 18:59 06:59 Intake Total 625 460 Output Total 275 400 Balance 350 60 - Medications Medications: Current Medications Apixaban (Eliquis) 2.5 mg PO Q12H [facility] Docusate Sodium (Colace) 100 mg PO BID [facility] Last Admin: 03/12/17 18:25 Dose: 100 mg Famotidine (Pepcid) 20 mg IVP DAILY [facility] Last Admin: 03/12/17 10:00 Dose: Not Given Sodium Chloride (Sodium Chloride 0.9%) 1,000 mls @ 40 mls/hr IV .Q24H [facility] Last Admin: 03/12/17 22:03 Dose: Not Given Cefazolin Sodium/Dextrose (Ancef Iv 2 Gm Duplex) 2 gm in 50 mls @ 100 mls/hr IVPB Q8H [facility] Stop: 03/13/17 00:29 Last Admin: 03/12/17 17:00 Dose: 100 mls/hr Ketorolac Tromethamine (Toradol) 15 mg IVP Q4H PRN PRN Reason: Pain, severe (8-10) Last Admin: 03/12/17 22:00 Dose: 15 mg Pneumococcal Polyvalent Vaccine (Pneumovax 23 Vaccine) 0.5 ml IM .ONCE ONE Stop: 03/13/17 10:01 Rosuvastatin Calcium (Crestor) 5 mg PO HS [facility] Last Admin: 03/12/17 21:58 Dose: 5 mg - Labs Labs: 03/12/17 10:26 03/10/17 21:01 PT 12.1 SECONDS (9.7-12.2) 03/12/17 04:00 INR 1.1 03/12/17 04:00 APTT 29 SECONDS (21-34) 03/12/17 04:00 Assessment and Plan (1) Hx of CABG Status: Acute (2) HTN (hypertension) Status: Acute (3) Hypercholesteremia Status: Acute (4) Hip fracture Assessment & Plan: status post ORIF left hip. DVT GI prophylaxis Status: Acute
[2017-03-13] MEDS: ceFAZolin IV 2 gm in Dextrose 2 GM/50 ML BAG IVPB SCH (00:28)
--- NOTE | 2017-03-13 08:16 | CP.PCM.PN ---
Subjective - Date & Time of Evaluation Date of Evaluation: 03/13/17 Time of Evaluation: 08:14 - Subjective Subjective: Patient complains of hip pain, but improved with medication. Denies CP/SOB/ dizziness/numbness/tingling Objective - Vital Signs/Intake and Output Vital Signs (last 24 hours): Temp Pulse Resp BP Pulse Ox 97.9 F 86 20 101/60 95 03/13/17 05:48 03/13/17 05:48 03/13/17 00:05 03/13/17 05:48 03/13/17 02:30 Intake and Output: 03/13/17 03/13/17 06:59 18:59 Intake Total 460 Output Total 600 Balance -140 - Medications Medications: Current Medications Apixaban (Eliquis) 2.5 mg PO Q12H [facility] Docusate Sodium (Colace) 100 mg PO BID [facility] Last Admin: 03/12/17 18:25 Dose: 100 mg Famotidine (Pepcid) 20 mg IVP DAILY [facility] Last Admin: 03/12/17 10:00 Dose: Not Given Sodium Chloride (Sodium Chloride 0.9%) 1,000 mls @ 40 mls/hr IV .Q24H [facility] Last Admin: 03/12/17 22:03 Dose: Not Given Pneumococcal Polyvalent Vaccine (Pneumovax 23 Vaccine) 0.5 ml IM .ONCE ONE Stop: 03/13/17 10:01 Rosuvastatin Calcium (Crestor) 5 mg PO HS [facility] Last Admin: 03/12/17 21:58 Dose: 5 mg - Labs Labs: 03/12/17 10:26 03/10/17 21:01 PT 12.1 SECONDS (9.7-12.2) 03/12/17 04:00 INR 1.1 03/12/17 04:00 APTT 29 SECONDS (21-34) 03/12/17 04:00 - Extremities Exam Additional comments: Left hip: thigh soft. No visible drainage. +ROM ankle/toes, sensationintact, calves soft NTneg homans +DP/PT pulses Assessment and Plan (1) Closed intertrochanteric fracture of left hip Assessment & Plan: left hip intertrochanteric fracture POD#1 s/p ORIF -PT/OT -f/u labs VTE proph eliquis 2.4mg PO BID x [address] Ortiz d/c planning d/w Dr. Ortiz, agrees with above Status: Acute
[2017-03-13 08:42] LABS: HEMATOCRIT 22.6 % (35.0-51.0); MEAN CELL VOLUME 95.2 fL (80.0-94.0); MEAN CORPUSCULAR HEMOGLOBIN 32.8 pg (27.0-31.0); MEAN CORPUSCULAR HGB CONC 34.4 g/dL (33.0-37.0); MEAN PLATELET VOLUME 8.3 fL (7.2-11.7); RED CELL DISTRIBUTION WIDTH 12.3 % (11.5-14.5)
[2017-03-13 08:57] LABS: BLOOD UREA NITROGEN 18 mg/dL (9-20); CALCIUM 7.2 mg/dl (8.6-10.4); CARBON DIOXIDE 23 mmol/L (22-30); CHLORIDE 104 mmol/L (98-107); GFR AFRICAN-AMERICAN > 60; GLUCOSE,RANDOM 95 mg/dL (75-110); POTASSIUM 3.7 mmol/L (3.6-5.2); SODIUM 136 mmol/L (132-148)
[2017-03-13] MEDS ORDERED: Pneumococcal 23-Valent Vaccine IM ONE (10:00)
[2017-03-13] MEDS ORDERED: Oxycodone/Acetaminophen 5/325 mg Tab PO PRN (11:00)
--- NOTE | 2017-03-13 15:14 | CARD ---
APPROVED REPORT EKG Measurement Heart [id number] <Conclusion> Sinus rhythm with frequent premature ventricular complexes Left axis deviation Left bundle branch block Abnormal ECG
--- NOTE | 2017-03-13 15:23 | CARD ---
APPROVED REPORT EKG Measurement Heart [id number] P-6 [id number] <Conclusion> sr with frequent pvcs Left axis deviation Left bundle branch block Abnormal ECG
--- NOTE | 2017-03-13 19:26 | CP.PCM.PN ---
Subjective - Date & Time of Evaluation Date of Evaluation: 03/13/17 Time of Evaluation: 19:23 - Subjective Subjective: Pt feels well, hgb 7.8, receiving transfusion. Could not stand today. On eliquis. Objective - Vital Signs/Intake and Output Vital Signs (last 24 hours): Temp Pulse Resp BP Pulse Ox 98.4 F 86 18 113/68 98 03/13/17 16:21 03/13/17 16:21 03/13/17 16:21 03/13/17 16:21 03/13/17 15:46 Intake and Output: 03/13/17 03/14/17 18:59 06:59 Intake Total 524 Balance 524 - Medications Medications: Current Medications Apixaban (Eliquis) 2.5 mg PO Q12H [facility] Last Admin: 03/13/17 12:00 Dose: 2.5 mg Docusate Sodium (Colace) 100 mg PO BID [facility] Last Admin: 03/13/17 17:16 Dose: 100 mg Famotidine (Pepcid) 20 mg IVP DAILY [facility] Last Admin: 03/13/17 10:49 Dose: 20 mg Morphine Sulfate (Morphine) 2 mg IVP Q4 PRN PRN Reason: Pain, moderate (4-7) Oxycodone/Acetaminophen (Percocet 5/325 Mg Tab) 1 tab PO Q4H PRN PRN Reason: Pain, Mild (1-3) Stop: 03/16/17 11:01 Rosuvastatin Calcium (Crestor) 5 mg PO [facility] Last Admin: 03/12/17 21:58 Dose: 5 mg - Labs Labs: 03/13/17 08:18 03/13/17 08:18 PT 12.1 SECONDS (9.7-12.2) 03/12/17 04:00 INR 1.1 03/12/17 04:00 APTT 29 SECONDS (21-34) 03/12/17 04:00 - Constitutional Appears: No Acute Distress - Head Exam Head Exam: ATRAUMATIC - Eye Exam Eye Exam: Normal appearance - ENT Exam ENT Exam: Mucous Membranes Moist - Neck Exam Neck Exam: Full ROM - Respiratory Exam Respiratory Exam: NORMAL BREATHING PATTERN - Cardiovascular Exam Cardiovascular Exam: REGULAR RHYTHM - Exam External exam: NORMAL EXTERNAL EXAM - Extremities Exam Extremities Exam: Full ROM - Back Exam Back Exam: NORMAL INSPECTION - Neurological Exam Neurological Exam: Alert, Awake, Oriented x3 - Psychiatric Exam Psychiatric exam: Normal Affect, Normal Mood - Skin Skin Exam: Dry, Normal Color Assessment and Plan - Assessment and Plan (Free Text) Assessment: 1. CAD: stable 2. Asymptomatic LV dysfunction. BP has improved. Will begin JOSEFA Inhib, beta nicole, low dose, but will need to be advanced as needed.
[2017-03-14 08:10] LABS: HEMATOCRIT 23.6 % (35.0-51.0); MEAN CELL VOLUME 94.4 fL (80.0-94.0); MEAN CORPUSCULAR HEMOGLOBIN 32.4 pg (27.0-31.0); MEAN CORPUSCULAR HGB CONC 34.4 g/dL (33.0-37.0); MEAN PLATELET VOLUME 8.7 fL (7.2-11.7); RED CELL DISTRIBUTION WIDTH 13.5 % (11.5-14.5); WHITE BLOOD COUNT 6.2 K/uL (4.8-10.8)
[2017-03-14 08:30] LABS: BLOOD UREA NITROGEN 18 mg/dL (9-20); CALCIUM 7.1 mg/dl (8.6-10.4); CARBON DIOXIDE 27 mmol/L (22-30); CHLORIDE 106 mmol/L (98-107); GFR AFRICAN-AMERICAN > 60; GLUCOSE,RANDOM 102 mg/dL (75-110); POTASSIUM 3.7 mmol/L (3.6-5.2); SODIUM 137 mmol/L (132-148)
--- NOTE | 2017-03-14 09:47 | CP.PCM.PN ---
Subjective - Date & Time of Evaluation Date of Evaluation: 03/14/17 Time of Evaluation: 13:35 - Subjective Subjective: Patient states he has a lot of hip pain, rika with PT. Denies CP/SOB Objective - Vital Signs/Intake and Output Vital Signs (last 24 hours): Temp Pulse Resp BP Pulse Ox 98.2 F 89 20 109/67 96 03/14/17 08:46 03/14/17 08:46 03/14/17 08:46 03/14/17 08:46 03/14/17 08:46 Intake and Output: 03/14/17 03/14/17 06:59 18:59 Intake Total 909 Output Total 400 Balance 509 - Medications Medications: Current Medications Apixaban (Eliquis) 2.5 mg PO Q12H [facility] Last Admin: 03/13/17 21:28 Dose: 2.5 mg Carvedilol (Coreg) 3.125 mg PO BID [facility] Docusate Sodium (Colace) 100 mg PO BID [facility] Last Admin: 03/13/17 17:16 Dose: 100 mg Enalapril Maleate (Vasotec) 2.5 mg PO DAILY [facility] Famotidine (Pepcid) 20 mg IVP DAILY [facility] Last Admin: 03/13/17 10:49 Dose: 20 mg Morphine Sulfate (Morphine) 2 mg IVP Q4 PRN PRN Reason: Pain, moderate (4-7) Oxycodone/Acetaminophen (Percocet 5/325 Mg Tab) 1 tab PO Q4H PRN PRN Reason: Pain, Mild (1-3) Stop: 03/16/17 11:01 Rosuvastatin Calcium (Crestor) 5 mg PO HS [facility] Last Admin: 03/13/17 21:28 Dose: 5 mg - Labs Labs: 03/14/17 07:42 03/14/17 07:42 PT 12.1 SECONDS (9.7-12.2) 03/12/17 04:00 INR 1.1 03/12/17 04:00 APTT 29 SECONDS (21-34) 03/12/17 04:00 - Extremities Exam Additional comments: left hip dressing change: Incisions intact, ecchymosis near prox incision, expected. No erythema. +ROM ankle/toes, sensation intact, +DP/PT pulses, calves soft NT neg homans Assessment and Plan (1) Closed intertrochanteric fracture of left hip Assessment & Plan: POD#2 s/p left hip ORIF -dopplers neg -ortho stable for d/c to rehab, dressing changes daily until dry -cont eliquis x [address] Ortiz -f/u approx 10 days call office for appointment -cont PT -d/w Dr. Ortiz, agrees with above Status: Acute (2) Acute blood loss anemia Assessment & Plan: s/p 2uPRBC Status: Acute
--- NOTE | 2017-03-14 15:11 | VASCLAB ---
PROCEDURE: Lower Extremity Venous Duplex Exam. HISTORY: Leg swelling PRIORS: None. TECHNIQUE: Bilateral common femoral, femoral, popliteal and posterior tibial, peroneal and great saphenous veins were evaluated. Flow was assessed with color Doppler, compressibility, assessment of phasic flow and augmentation response. Report prepared by COLTON Quintanilla, RVT FINDINGS: RIGHT: 1. Common Femoral Vein: 1.1. Compressibility - Fully compressible: Thrombus - None : Flow - Phasic: Augmentation -Normal: Reflux - None. 2. Femoral Vein: 2.1. Compressibility - Fully compressible: Thrombus - None : Flow - Phasic: Augmentation -Normal: Reflux - None. 3. Popliteal Vein: 3.1. Compressibility - Fully compressible: Thrombus - None : Flow - Phasic: Augmentation -Normal: Reflux - None. 4. Posterior Tibial Vein: 4.1. Compressibility - Fully compressible: Thrombus - None: Flow - Phasic: Augmentation -Normal: Reflux - None. 5. Peroneal Vein: 5.1. Compressibility - Fully compressible: Thrombus - None: Flow - Phasic: Augmentation -Normal: Reflux - None. 6. Great Saphenous Vein: 6.1. Compressibility - Fully compressible: Thrombus - None: Flow - Phasic: Augmentation - Normal: Reflux - None. LEFT: 1. Common Femoral Vein: 1.1. Compressibility - Fully compressible: Thrombus - None: Flow - Phasic: Augmentation -Normal: Reflux - None. 2. Femoral Vein: 2.1. Compressibility - Fully compressible: Thrombus - None: Flow - Phasic: Augmentation -Normal: Reflux - None. 3. Popliteal Vein: 3.1. Compressibility - Fully compressible: Thrombus - None : Flow - Phasic: Augmentation -Normal: Reflux - None. 4. Posterior Tibial Vein: 4.1. Compressibility - Fully compressible: Thrombus - None: Flow - Phasic: Augmentation -Normal: Reflux - None. 5. Peroneal Vein: 5.1. Compressibility - Fully compressible: Thrombus - None: Flow - Phasic: Augmentation -Normal: Reflux - None. 6. Great Saphenous Vein: 6.1. Compressibility - Fully compressible: Thrombus - None: Flow - Phasic: Augmentation - Normal: Reflux - None. OTHER FINDINGS: Right: None significant. Left: None significant. IMPRESSION: Right: No evidence of deep or superficial vein thrombosis of the right lower extremity. Normal valve function noted of the right side. Left: No evidence of deep or superficial vein thrombosis of the left lower extremity. Normal valve function noted of the left side.
--- NOTE | 2017-03-14 15:40 | CP.PCM.PN ---
Subjective - Date & Time of Evaluation Date of Evaluation: 03/14/17 Time of Evaluation: 15:22 - Subjective Subjective: PT SEEN THIS MORNING AND CLEARED FOR D/C BY ORTHO. PER RACHEAL CEJA, PT TO F/U WITH DR. KEITH IN 10 DAYS, CONTINUE PT/OT, AND ELIQUIS X35 DAYS. PT ALSO SEEN BY DR. ANDERSON AND REQUESTING PT FOR D/C TOMORROW MORNING. ALL D/C PLAN AND ORDERS IN FOR TOMORROW MORNING; PT TO BE FOLLOW BY DR. ANDERSON AT [facility]. TO ARRANGE TRANSPORTATION. NO FURTHER ORDERS. Objective - Vital Signs/Intake and Output Vital Signs (last 24 hours): Temp Pulse Resp BP Pulse Ox 98.2 F 89 20 115/70 96 03/14/17 08:46 03/14/17 08:46 03/14/17 08:46 03/14/17 10:42 03/14/17 08:46 Intake and Output: 03/14/17 03/14/17 06:59 18:59 Intake Total 909 Output Total 400 Balance 509 - Medications Medications: Current Medications Apixaban (Eliquis) 2.5 mg PO Q12H [facility] Last Admin: 03/14/17 10:00 Dose: 2.5 mg Carvedilol (Coreg) 3.125 mg PO BID [facility] Last Admin: 03/14/17 10:34 Dose: 3.125 mg Docusate Sodium (Colace) 100 mg PO BID [facility] Last Admin: 03/14/17 10:34 Dose: 100 mg Enalapril Maleate (Vasotec) 2.5 mg PO DAILY [facility] Last Admin: 03/14/17 10:42 Dose: 2.5 mg Famotidine (Pepcid) 20 mg IVP DAILY [facility] Last Admin: 03/14/17 10:35 Dose: 20 mg Morphine Sulfate (Morphine) 2 mg IVP Q4 PRN PRN Reason: Pain, moderate (4-7) Oxycodone/Acetaminophen (Percocet 5/325 Mg Tab) 1 tab PO Q4H PRN PRN Reason: Pain, Mild (1-3) Stop: 03/16/17 11:01 Rosuvastatin Calcium (Crestor) 5 mg PO HS [facility] Last Admin: 03/13/17 21:28 Dose: 5 mg - Labs Labs: 03/14/17 07:42 03/14/17 07:42 PT 12.1 SECONDS (9.7-12.2) 03/12/17 04:00 INR 1.1 03/12/17 04:00 APTT 29 SECONDS (21-34) 03/12/17 04:00
--- NOTE | 2017-03-15 09:05 | RAD ---
PROCEDURE: Left Hip X-ray Radiographs. HISTORY: post op COMPARISON: Left hip radiographs 03/12/2017. FINDINGS: BONES: Status post or I AF status again appreciated with a proximal left femoral intramedullary nail transfixed by proximal distal interlocking screws with the lesser trochanter remaining avulsed. Adequate reduction remains with no new fracture appreciated. No definite dislocation or subluxation of the left hip joint. Degenerative joint changes are again identified. Diffuse osteopenia suggests osteoporosis. Postop edema is again seen at the left hip/thigh soft tissues. OTHER FINDINGS: None. IMPRESSION: Stable left the hip joint and femur status post ORIF proximal left femoral fracture. No suspicious interval findings.
--- NOTE | 2017-03-15 18:03 | CP.PCM.PN ---
Subjective - Date & Time of Evaluation Date of Evaluation: 03/15/17 Time of Evaluation: 18:03 - Subjective Subjective: patient is feeling better. complaining of left hip pain. Unable to move much. Some frustration. no BM. Objective - Vital Signs/Intake and Output Vital Signs (last 24 hours): Temp Pulse Resp BP Pulse Ox 99.5 F 79 20 115/67 98 03/15/17 17:41 03/15/17 17:41 03/15/17 17:41 03/15/17 17:41 03/15/17 17:41 Intake and Output: 03/15/17 03/15/17 06:59 18:59 Output Total 350 Balance -350 leg swelling noted no drainage noted Vital signs reviewed No neck vein distention noted Chest good air entry bilaterally, no wheezing or rales noted CVS regular heart sound, no murmur noted Abdomen soft, nontender. Extremities no pedal edema METER TESTER alert awake oriented -3, no functional neurological deficit - Medications Medications: Current Medications Apixaban (Eliquis) 2.5 mg PO Q12H [facility] Last Admin: 03/15/17 09:51 Dose: 2.5 mg Carvedilol (Coreg) 3.125 mg PO BID [facility] Last Admin: 03/15/17 17:29 Dose: 3.125 mg Docusate Sodium (Colace) 100 mg PO BID [facility] Last Admin: 03/15/17 17:29 Dose: 100 mg Enalapril Maleate (Vasotec) 2.5 mg PO DAILY [facility] Last Admin: 03/15/17 09:46 Dose: 2.5 mg Famotidine (Pepcid) 20 mg IVP DAILY [facility] Last Admin: 03/15/17 09:45 Dose: 20 mg Morphine Sulfate (Morphine) 2 mg IVP Q4 PRN PRN Reason: Pain, moderate (4-7) Oxycodone/Acetaminophen (Percocet 5/325 Mg Tab) 1 tab PO Q4H PRN PRN Reason: Pain, Mild (1-3) Stop: 03/16/17 11:01 Rosuvastatin Calcium (Crestor) 5 mg PO HS [facility] Last Admin: 03/14/17 21:18 Dose: 5 mg - Labs Labs: 03/14/17 07:42 03/14/17 07:42 PT 12.1 SECONDS (9.7-12.2) 03/12/17 04:00 INR 1.1 03/12/17 04:00 APTT 29 SECONDS (21-34) 03/12/17 04:00 Assessment and Plan (1) Hx of CABG Status: Acute (2) HTN (hypertension) Status: Acute (3) Hypercholesteremia Status: Acute (4) Hip fracture Assessment & Plan: status post ORIF status post a transfusion. Plan monitor the H&H Status: Acute
[2017-03-15 19:09] LABS: HEMATOCRIT 23.4 % (35.0-51.0); MEAN CORPUSCULAR HEMOGLOBIN 32.2 pg (27.0-31.0); MEAN CORPUSCULAR HGB CONC 33.9 g/dL (33.0-37.0); MEAN PLATELET VOLUME 7.6 fL (7.2-11.7); RED CELL DISTRIBUTION WIDTH 13.2 % (11.5-14.5); WHITE BLOOD COUNT 6.2 K/uL (4.8-10.8)
[2017-03-16 11:11] LABS: HEMATOCRIT 24.1 % (35.0-51.0); MEAN CELL VOLUME 95.2 fL (80.0-94.0); MEAN CORPUSCULAR HEMOGLOBIN 32.7 pg (27.0-31.0); MEAN CORPUSCULAR HGB CONC 34.3 g/dL (33.0-37.0); WHITE BLOOD COUNT 6.5 K/uL (4.8-10.8)
--- NOTE | 2017-03-17 08:21 | CP.PCM.PN ---
Subjective - Date & Time of Evaluation Date of Evaluation: 03/17/17 Time of Evaluation: 08:18 - Subjective Subjective: Patient still complaining of thigh and hip pain. Objective - Vital Signs/Intake and Output Vital Signs (last 24 hours): Temp Pulse Resp BP Pulse Ox 98.3 F 80 20 100/60 97 03/16/17 23:55 03/16/17 23:55 03/16/17 23:55 03/16/17 23:55 03/16/17 23:55 Intake and Output: 03/17/17 03/17/17 06:59 18:59 Intake Total 480 Output Total 700 Balance -220 - Medications Medications: Current Medications Apixaban (Eliquis) 2.5 mg PO Q12H [facility] Last Admin: 03/16/17 21:24 Dose: 2.5 mg Carvedilol (Coreg) 3.125 mg PO BID [facility] Last Admin: 03/16/17 17:57 Dose: 3.125 mg Docusate Sodium (Colace) 100 mg PO BID [facility] Last Admin: 03/16/17 17:58 Dose: 100 mg Enalapril Maleate (Vasotec) 2.5 mg PO DAILY [facility] Last Admin: 03/16/17 10:00 Dose: 2.5 mg Famotidine (Pepcid) 20 mg IVP DAILY [facility] Last Admin: 03/16/17 09:52 Dose: 20 mg Morphine Sulfate (Morphine) 2 mg IVP Q4 PRN PRN Reason: Pain, moderate (4-7) Last Admin: 03/16/17 09:56 Dose: 2 mg Rosuvastatin Calcium (Crestor) 5 mg PO HS [facility] Last Admin: 03/16/17 21:24 Dose: 5 mg - Labs Labs: 03/16/17 10:59 03/14/17 07:42 PT 12.1 SECONDS (9.7-12.2) 03/12/17 04:00 INR 1.1 03/12/17 04:00 APTT 29 SECONDS (21-34) 03/12/17 04:00 - Extremities Exam Additional comments: Left hip: severe ecchymosis entire lateral leg and hip from iliac crest to knee. This is significantly worse from last exam three days ago. +ROM ankle/toes , sensation intact. +DP/PT pulses, calves soft NT neg homans Increased drainage from wounds, serous. No odor, incisions intact Assessment and Plan (1) Closed intertrochanteric fracture of left hip Assessment & Plan: POD# 5 s/p left hip nailing -increased ecchymosis, CBC ordered, eliquis held, will defer to Dr. Villar further mgmt -f/u repeat xrays -d/w Dr. Ortiz, states to hold eliquis x3-4 days -venodynes at all times while in bed -will follow Status: Acute (2) Acute blood loss anemia Status: Acute
[2017-03-17 08:57] LABS: MEAN CELL VOLUME 94.6 fL (80.0-94.0); MEAN CORPUSCULAR HEMOGLOBIN 32.5 pg (27.0-31.0); MEAN CORPUSCULAR HGB CONC 34.3 g/dL (33.0-37.0); MEAN PLATELET VOLUME 7.6 fL (7.2-11.7); WHITE BLOOD COUNT 7.2 K/uL (4.8-10.8)
[2017-03-17 09:25] LABS: BLOOD UREA NITROGEN 20 mg/dL (9-20); CALCIUM 7.6 mg/dl (8.6-10.4); CARBON DIOXIDE 32 mmol/L (22-30); CHLORIDE 101 mmol/L (98-107); GFR AFRICAN-AMERICAN > 60; GLUCOSE,RANDOM 108 mg/dL (75-110); POTASSIUM 4.5 mmol/L (3.6-5.2); SODIUM 135 mmol/L (132-148)
--- NOTE | 2017-03-17 11:55 | RAD ---
Pelvis and left hip two views History: Postop. Comparison: 03/14/2017 Findings: Intramedullary safia with dynamic screw transfixing a left proximal femur fracture. Persistent medially displaced left lesser tuberosity fracture fragment. Overlying surgical elizabeth. Moderate degenerative changes of the right hip joint space with subchondral sclerosis. Calcified phleboliths in the pelvis. Impression: Postoperative changes.
[2017-03-17] MEDS: Tramadol 25 mg PO SCH ×2 (14:17→22:29)
--- NOTE | 2017-03-17 18:26 | CP.PCM.PN ---
Subjective - Date & Time of Evaluation Date of Evaluation: 03/13/17 Time of Evaluation: 18:26 - Subjective Subjective: increasing pain noted. Swelling in the left hip noted. patient has no chest pain, no shortness of breath, eating okay. Currently having no BM Objective - Vital Signs/Intake and Output Vital Signs (last 24 hours): Temp Pulse Resp BP Pulse Ox 98.1 F 75 18 109/61 97 03/17/17 15:45 03/17/17 16:00 03/17/17 15:45 03/17/17 15:45 03/17/17 15:45 Intake and Output: 03/17/17 03/17/17 06:59 18:59 Intake Total 480 Output Total 700 300 Balance -220 -300 Vital signs reviewed No neck vein distention noted Chest good air entry bilaterally, no wheezing or rales noted CVS regular heart sound, no murmur noted Abdomen soft, nontender. Extremities no pedal edema [employer] alert awake oriented -3, no functional neurological deficit - Medications Medications: Current Medications Apixaban (Eliquis) 2.5 mg PO Q12H [facility] Last Admin: 03/16/17 21:24 Dose: 2.5 mg Carvedilol (Coreg) 3.125 mg PO BID [facility] Last Admin: 03/17/17 17:56 Dose: 3.125 mg Docusate Sodium (Colace) 100 mg PO BID [facility] Last Admin: 03/17/17 17:56 Dose: 100 mg Enalapril Maleate (Vasotec) 2.5 mg PO DAILY [facility] Last Admin: 03/17/17 09:29 Dose: 2.5 mg Famotidine (Pepcid) 20 mg PO DAILY [facility] Lactulose (Enulose) 20 gm PO HS [facility] Morphine Sulfate (Morphine) 2 mg IVP Q4 PRN PRN Reason: Pain, moderate (4-7) Last Admin: 03/17/17 09:27 Dose: 2 mg Rosuvastatin Calcium (Crestor) 5 mg PO HS [facility] Last Admin: 03/16/17 21:24 Dose: 5 mg Tramadol HCl (Ultram) 25 mg PO TID [facility] Last Admin: 03/17/17 14:17 Dose: 25 mg - Labs Labs: 03/17/17 08:45 03/17/17 08:45 PT 12.1 SECONDS (9.7-12.2) 03/12/17 04:00 INR 1.1 03/12/17 04:00 APTT 29 SECONDS (21-34) 03/12/17 04:00 Assessment and Plan (1) Hx of CABG Status: Acute (2) HTN (hypertension) Status: Acute (3) Hypercholesteremia Status: Acute (4) Hip fracture Assessment & Plan: status post ORIF left hip. Patient is currently on anticoagulation for prophylaxis Status: Acute
--- NOTE | 2017-03-17 18:26 | CP.PCM.PN ---
Subjective - Date & Time of Evaluation Date of Evaluation: 03/14/17 Time of Evaluation: 18:26 - Subjective Subjective: no chest pain. No nausea vomiting. Currently eating well. Hemoglobin slightly on the low side. Blood transfusion ordered. Objective - Vital Signs/Intake and Output Vital Signs (last 24 hours): Temp Pulse Resp BP Pulse Ox 98.1 F 75 18 109/61 97 03/17/17 15:45 03/17/17 16:00 03/17/17 15:45 03/17/17 15:45 03/17/17 15:45 Intake and Output: 03/17/17 03/17/17 06:59 18:59 Intake Total 480 Output Total 700 300 Balance -220 -300 Vital signs reviewed No neck vein distention noted Chest good air entry bilaterally, no wheezing or rales noted CVS regular heart sound, no murmur noted Abdomen soft, nontender. Extremities no pedal edema [facility] alert awake oriented -3, no functional neurological deficit - Medications Medications: Current Medications Apixaban (Eliquis) 2.5 mg PO Q12H [facility] Last Admin: 03/16/17 21:24 Dose: 2.5 mg Carvedilol (Coreg) 3.125 mg PO BID [facility] Last Admin: 03/17/17 17:56 Dose: 3.125 mg Docusate Sodium (Colace) 100 mg PO BID [facility] Last Admin: 03/17/17 17:56 Dose: 100 mg Enalapril Maleate (Vasotec) 2.5 mg PO DAILY [facility] Last Admin: 03/17/17 09:29 Dose: 2.5 mg Famotidine (Pepcid) 20 mg PO DAILY [facility] Lactulose (Enulose) 20 gm PO HS [facility] Morphine Sulfate (Morphine) 2 mg IVP Q4 PRN PRN Reason: Pain, moderate (4-7) Last Admin: 03/17/17 09:27 Dose: 2 mg Rosuvastatin Calcium (Crestor) 5 mg PO HS [facility] Last Admin: 03/16/17 21:24 Dose: 5 mg Tramadol HCl (Ultram) 25 mg PO TID [facility] Last Admin: 03/17/17 14:17 Dose: 25 mg - Labs Labs: 03/17/17 08:45 03/17/17 08:45 PT 12.1 SECONDS (9.7-12.2) 03/12/17 04:00 INR 1.1 03/12/17 04:00 APTT 29 SECONDS (21-34) 03/12/17 04:00 Assessment and Plan (1) Hx of CABG Status: Acute (2) HTN (hypertension) Status: Acute (3) Hypercholesteremia Status: Acute (4) Hip fracture Assessment & Plan: status post ORIF Currently on DVT and GI prophylaxis Status: Acute
--- NOTE | 2017-03-17 18:26 | CP.PCM.PN ---
Subjective - Date & Time of Evaluation Date of Evaluation: 03/17/17 Time of Evaluation: 18:26 - Subjective Subjective: his morning patient is still feeling somewhat, mostly on the left side hip pain noted. Swelling noted. Ecchymoses noted. Ecchymoses extending from the left hip, although to the left knee. Swelling noted, edema present. No fever. Objective - Vital Signs/Intake and Output Vital Signs (last 24 hours): Temp Pulse Resp BP Pulse Ox 98.1 F 75 18 109/61 97 03/17/17 15:45 03/17/17 16:00 03/17/17 15:45 03/17/17 15:45 03/17/17 15:45 Intake and Output: 03/17/17 03/17/17 06:59 18:59 Intake Total 480 Output Total 700 300 Balance -220 -300 Vital signs reviewed No neck vein distention noted Chest good air entry bilaterally, no wheezing or rales noted CVS regular heart sound, no murmur noted Abdomen soft, nontender. 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 deficit - Medications Medications: Current Medications Apixaban (Eliquis) 2.5 mg PO Q12H [facility] Last Admin: 03/16/17 21:24 Dose: 2.5 mg Carvedilol (Coreg) 3.125 mg PO BID [facility] Last Admin: 03/17/17 17:56 Dose: 3.125 mg Docusate Sodium (Colace) 100 mg PO BID [facility] Last Admin: 03/17/17 17:56 Dose: 100 mg Enalapril Maleate (Vasotec) 2.5 mg PO DAILY [facility] Last Admin: 03/17/17 09:29 Dose: 2.5 mg Famotidine (Pepcid) 20 mg PO DAILY [facility] Lactulose (Enulose) 20 gm PO [facility] Morphine Sulfate (Morphine) 2 mg IVP Q4 PRN PRN Reason: Pain, moderate (4-7) Last Admin: 03/17/17 09:27 Dose: 2 mg Rosuvastatin Calcium (Crestor) 5 mg PO HS [facility] Last Admin: 03/16/17 21:24 Dose: 5 mg Tramadol HCl (Ultram) 25 mg PO TID [facility] Last Admin: 03/17/17 14:17 Dose: 25 mg - Labs Labs: 03/17/17 08:45 03/17/17 08:45 PT 12.1 SECONDS (9.7-12.2) 03/12/17 04:00 INR 1.1 03/12/17 04:00 APTT 29 SECONDS (21-34) 03/12/17 04:00 Assessment and Plan (1) Hx of CABG Status: Acute (2) HTN (hypertension) Status: Acute (3) Hypercholesteremia Status: Acute (4) Hip fracture Assessment & Plan: patient with the left hip fracture,status post ORIF. Anemia, possibly secondary to bleeding. Stable now. Recent blood transition Spoke to the surgeon, and will hold the eliquis for now. The patient is at high risk for DVT. Because of the bleeding, hematoma, and a transfusion will hold anti-coagulation. The patient is stable, will resume anticoagulation. Possible discharge tomorrow Status: Acute
--- NOTE | 2017-03-17 18:26 | CP.PCM.PN ---
Subjective - Date & Time of Evaluation Date of Evaluation: 03/16/17 Time of Evaluation: 18:26 - Subjective Subjective: no swelling in the left hip noted. has more pain No BM. Eating okay. He is feeling ok Objective - Vital Signs/Intake and Output Vital Signs (last 24 hours): Temp Pulse Resp BP Pulse Ox 98.1 F 75 18 109/61 97 03/17/17 15:45 03/17/17 16:00 03/17/17 15:45 03/17/17 15:45 03/17/17 15:45 Intake and Output: 03/17/17 03/17/17 06:59 18:59 Intake Total 480 Output Total 700 300 Balance -220 -300 Vital signs reviewed No neck vein distention noted Chest good air entry bilaterally, no wheezing or rales noted CVS regular heart sound, no murmur noted Abdomen soft, nontender. 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, no functional neurological deficit - Medications Medications: Current Medications Apixaban (Eliquis) 2.5 mg PO Q12H [facility] Last Admin: 03/16/17 21:24 Dose: 2.5 mg Carvedilol (Coreg) 3.125 mg PO BID [facility] Last Admin: 03/17/17 17:56 Dose: 3.125 mg Docusate Sodium (Colace) 100 mg PO BID [facility] Last Admin: 03/17/17 17:56 Dose: 100 mg Enalapril Maleate (Vasotec) 2.5 mg PO DAILY [facility] Last Admin: 03/17/17 09:29 Dose: 2.5 mg Famotidine (Pepcid) 20 mg PO DAILY [facility] Lactulose (Enulose) 20 gm PO HS [facility] Morphine Sulfate (Morphine) 2 mg IVP Q4 PRN PRN Reason: Pain, moderate (4-7) Last Admin: 03/17/17 09:27 Dose: 2 mg Rosuvastatin Calcium (Crestor) 5 mg PO HS [facility] Last Admin: 03/16/17 21:24 Dose: 5 mg Tramadol HCl (Ultram) 25 mg PO TID [facility] Last Admin: 03/17/17 14:17 Dose: 25 mg - Labs Labs: 03/17/17 08:45 03/17/17 08:45 PT 12.1 SECONDS (9.7-12.2) 03/12/17 04:00 INR 1.1 03/12/17 04:00 APTT 29 SECONDS (21-34) 03/12/17 04:00 Assessment and Plan (1) Hx of CABG Status: Acute (2) HTN (hypertension) Status: Acute (3) Hypercholesteremia Status: Acute (4) Hip fracture Status: Acute
[2017-03-18 07:29] LABS: BASO % 0.4 % (0.0-2.0); EOS # 0.2 K/uL (0.0-0.7); EOS % 4.2 % (0.0-4.0); HEMATOCRIT 22.7 % (35.0-51.0); LYMPH # 0.8 K/uL (1.0-4.3); LYMPH % 13.9 % (20.0-40.0); MEAN CELL VOLUME 94.6 fL (80.0-94.0); MEAN CORPUSCULAR HEMOGLOBIN 32.5 pg (27.0-31.0); MEAN CORPUSCULAR HGB CONC 34.4 g/dL (33.0-37.0); MEAN PLATELET VOLUME 7.6 fL (7.2-11.7); MONO # 0.7 K/uL (0.0-0.8); NRBC % 0.1 % (0.0-2.0); RED CELL DISTRIBUTION WIDTH 13.1 % (11.5-14.5); WHITE BLOOD COUNT 5.9 K/uL (4.8-10.8)
[2017-03-18 07:44] LABS: INR 1.1
[2017-03-18 07:51] LABS: ALB/GLOB RATIO 1.2 (1.0-2.1); ALKALINE PHOSPHATASE 61 U/L (38-126); ALT/SGPT 44 U/L (21-72); AST/SGOT 33 U/L (17-59); BILIRUBIN,TOTAL 1.2 mg/dL (0.2-1.3); BLOOD UREA NITROGEN 23 mg/dL (9-20); CALCIUM 7.4 mg/dl (8.6-10.4); CARBON DIOXIDE 28 mmol/L (22-30); CHLORIDE 102 mmol/L (98-107); GFR AFRICAN-AMERICAN > 60; GLUCOSE,RANDOM 102 mg/dL (75-110); SODIUM 135 mmol/L (132-148)
[2017-03-18] MEDS: Tramadol 25 mg PO SCH ×2 (09:56→14:16)
--- NOTE | 2017-03-18 12:10 | CP.PCM.PN ---
Subjective - Date & Time of Evaluation Date of Evaluation: 03/18/17 Time of Evaluation: 14:11 - Subjective Subjective: patient states he still has a lot of pain in his hip. Ki CP/SOB/dizziness. Objective - Vital Signs/Intake and Output Vital Signs (last 24 hours): Temp Pulse Resp BP Pulse Ox 98.1 F 75 18 108/58 L 98 03/18/17 09:12 03/18/17 09:12 03/18/17 09:12 03/18/17 09:56 03/18/17 09:12 Intake and Output: 03/18/17 03/18/17 06:59 18:59 Intake Total 300 Output Total 400 450 Balance -400 -150 - Medications Medications: Current Medications Apixaban (Eliquis) 2.5 mg PO Q12H [facility] Last Admin: 03/16/17 21:24 Dose: 2.5 mg Carvedilol (Coreg) 3.125 mg PO BID [facility] Last Admin: 03/18/17 09:56 Dose: 3.125 mg Docusate Sodium (Colace) 100 mg PO BID [facility] Last Admin: 03/18/17 09:55 Dose: 100 mg Enalapril Maleate (Vasotec) 2.5 mg PO DAILY [facility] Last Admin: 03/18/17 09:56 Dose: 2.5 mg Famotidine (Pepcid) 20 mg PO DAILY [facility] Last Admin: 03/18/17 09:55 Dose: 20 mg Lactulose (Enulose) 20 gm PO HS [facility] Last Admin: 03/17/17 21:12 Dose: 20 gm Morphine Sulfate (Morphine) 2 mg IVP Q4 PRN PRN Reason: Pain, moderate (4-7) Last Admin: 03/17/17 09:27 Dose: 2 mg Rosuvastatin Calcium (Crestor) 5 mg PO HS [facility] Last Admin: 03/17/17 21:12 Dose: 5 mg Tramadol HCl (Ultram) 25 mg PO TID [facility] Last Admin: 03/18/17 09:56 Dose: 25 mg - Labs Labs: 03/18/17 07:19 03/18/17 07:19 PT 12.5 SECONDS (9.7-12.2) H 03/18/17 07:19 INR 1.1 03/18/17 07:19 APTT 27 SECONDS (21-34) 03/18/17 07:19 - Extremities Exam Additional comments: less drainage, ecchymosis is receding from demarcation. +ROM ankle/toes, sensation intact, no increase in thigh swelling. +rom ankle/toes, sensation intact +DP/PT pulsescalves soft NT neg homans Assessment and Plan (1) Closed intertrochanteric fracture of left hip Assessment & Plan: swelling/drainage/ecchymosis better today d/w Dr. Ortiz, notified of above for transfusion 1uPRBC today, then plan transfer to rehab planned cont PT/OT dressing change daily/prn eliquis held for now, encourage ankle pumps, OOB, venodynes at all times in bed Status: Acute (2) Acute blood loss anemia Status: Acute
--- NOTE | 2017-03-18 14:14 | CP.PCM.PN ---
Subjective - Date & Time of Evaluation Date of Evaluation: 03/18/17 Time of Evaluation: 14:14 - Subjective Subjective: DISCUSSED PLAN FOR DISPO WITH DR. ANDERSON. LABS REVIEWED WITH DR. OGDEN. PT TO BE TRANSFUSED 1 UNIT OF [facility] TODAY THEN BE D/C TO [facility] [place] [place] AT APPROX 8 PM. SW WILL ARRANGE TRANSPORTATION. PT AWARE OF PLAN AND IN AGREEMENT HE IS VERY EAGER TO BE D/C. CLEARED BY ORTHO TEAM AND PER RACHEAL PT TO F/U WITH DR. KEITH IN 10 DAYS. SEE BELOW INFORMATION FOR FURTHER D/C PLAN. DR. OGDEN TO FOLLOW PT AT [facility] [place] [place] AND WILL REPEAT CBC IN THE MORNING AND RESTART ELIQUIS IF HGB IMPROVED AND PT STABLE. NO FURTHER ORDERS. PLACE UNDER THE SERVICE OF DR. ANDERSON WHILE AT [facility] [place] [place] [facility]---CALL UPON ARRIVAL FOR ADMITTING ORDERS AND WITH BED ASSIGNMENT. PLEASE ARRANGE A FOLLOW UP APPOINTMENT WITH DR. KEITH (ORTHO) IN THE OFFICE FOR WITHIN 10 DAYS (BY 03/28/17). ORTHO RECOMMENDATIONS: PT/OT TOLERATED; CHANGE DRESSING TO HIP DAILY UNTIL SURGICAL SITE IS DRY. REPEAT CBC TOMORROW MORNING AND NOTIFY DR. ANDERSON OF RESULTS SOON THEY ARE RESULTED. MONITOR THE HEMATOMA TO LEFT HIP AND ALONG THE LEFT LOWER EXTREMITY. NOTIFY DR. ANDERSON IMMEDIATELY IF IT IS WORSENING. CONTINUE MEDICATIONS PER THE MED REC FORM; NARCOTIC PAIN MEDICATION AND CHANGES CAN BE MADE BY DR. ANDERSON ONCE MR. CLAUDIO ARRIVE AT [facility] [place] [place]. DR. ANDERSON WILL RESTART ELIQUIS THIS WEEK AFTER REPEAT CBC IS RESULTED. ANY FURTHER QUESTIONS, CONTACT DR. ANDERSON. Objective - Vital Signs/Intake and Output Vital Signs (last 24 hours): Temp Pulse Resp BP Pulse Ox 98.1 F 75 18 108/58 L 98 03/18/17 09:12 03/18/17 09:12 03/18/17 09:12 03/18/17 09:56 03/18/17 09:12 Intake and Output: 03/18/17 03/18/17 06:59 18:59 Intake Total 300 Output Total 400 450 Balance -400 -150 - Medications Medications: Current Medications Apixaban (Eliquis) 2.5 mg PO Q12H [facility] Last Admin: 03/16/17 21:24 Dose: 2.5 mg Carvedilol (Coreg) 3.125 mg PO BID [facility] Last Admin: 03/18/17 09:56 Dose: 3.125 mg Docusate Sodium (Colace) 100 mg PO BID [facility] Last Admin: 03/18/17 09:55 Dose: 100 mg Enalapril Maleate (Vasotec) 2.5 mg PO DAILY [facility] Last Admin: 03/18/17 09:56 Dose: 2.5 mg Famotidine (Pepcid) 20 mg PO DAILY [facility] Last Admin: 03/18/17 09:55 Dose: 20 mg Lactulose (Enulose) 20 gm PO HS [facility] Last Admin: 03/17/17 21:12 Dose: 20 gm Morphine Sulfate (Morphine) 2 mg IVP Q4 PRN PRN Reason: Pain, moderate (4-7) Last Admin: 03/17/17 09:27 Dose: 2 mg Rosuvastatin Calcium (Crestor) 5 mg PO HS [facility] Last Admin: 03/17/17 21:12 Dose: 5 mg Tramadol HCl (Ultram) 25 mg PO TID [facility] Last Admin: 03/18/17 09:56 Dose: 25 mg - Labs Labs: 03/18/17 07:19 03/18/17 07:19 PT 12.5 SECONDS (9.7-12.2) H 03/18/17 07:19 INR 1.1 03/18/17 07:19 APTT 27 SECONDS (21-34) 03/18/17 07:19
[2017-03-18 16:00] VITALS: O2SAT 94
[2017-03-18 18:36] VITALS: BP 111/58; PULSE 64; RESP 18; TEMP 97.8
== END 2017-03-18 21:06 | DRG 481 ==
LOC: C.ER 13:46 → C.9E 15:01 → C.6T 21:12
PROVIDERS: ADMIT Internal Medicine; ATTEND Internal Medicine
PROC: 0QS706Z Reposition Left Upper Femur with Intramedullary Internal Fixation Device, Open Approach (ICD-10-PCS; principal; 2017-03-11)
PROC: 30233N1 Transfusion of Nonautologous Red Blood Cells into Peripheral Vein, Percutaneous Approach (ICD-10-PCS; 2017-03-11)
DX: S72.142A Displaced intertrochanteric fracture of left femur, initial encounter for closed fracture (principal); D62 Acute posthemorrhagic anemia; E86.9 Volume depletion, unspecified; Z95.1 Presence of aortocoronary bypass graft; E78.00 Pure hypercholesterolemia, unspecified; I10 Essential (primary) hypertension; I25.10 Atherosclerotic heart disease of native coronary artery without angina pectoris; I51.89 Other ill-defined heart diseases; M81.0 Age-related osteoporosis without current pathological fracture; W01.0XXA Fall on same level from slipping, tripping and stumbling without subsequent striking against object, initial encounter; Y93.01 Activity, walking, marching and hiking; Z82.49 Family history of ischemic heart disease and other diseases of the circulatory system; Z82.5 Family history of asthma and other chronic lower respiratory diseases